=== PATIENT | female | born 1980 | race Two or more races ===

== ENCOUNTER 2022-08-09 21:26 | Inpatient (IN) | payer MEDICAID ==
[~2022-08-09] VITALS: Ht 152.4 cm; Wt 79.4 kg
--- NOTE | 2022-08-09 22:10 | NUR ---
TO ER BED 10. BIBSELF C/O RIGHT SIDE ABD PAIN X 4 DAYS, N/V AND Diarrhea. PT ALERT AND ORIENTED. RR EVEN AND NON LABORED. CONNECTED TO MONITOR. AWAITING MD ZHU
[2022-08-09] MEDS ORDERED: ONDANSETRON HCL/PF 4 MG/2 ML VIAL IVP ONE (22:30)
[2022-08-09] MEDS ORDERED: IV NS 0.9% 1,000 ML BAG IV ONE (22:30)
[2022-08-09] MEDS ORDERED: MORPHINE SULFATE INJ 2 MG/ML DISP.SYRIN IV ONE (22:30)
[2022-08-09] MEDS ORDERED: ONDANSETRON HCL/PF 4 MG/2 ML VIAL ONE (22:31)
[2022-08-09] MEDS ORDERED: MORPHINE SULFATE INJ 4 MG/ML DISP.SYRIN ONE (22:31)
[2022-08-09] MEDS ORDERED: ACETAMINOPHEN 650 MG/SUPP.RECT RC ONE (22:37)
[2022-08-09 22:53] LABS: BILIRUBIN,URINE NEGATIVE (NEGATIVE); COLOR,URINE YELLOW (YELLOW); LEUKOCYTE ESTERASE ,URINE NEGATIVE (NEGATIVE); NITRITE, URINE NEGATIVE (NEGATIVE); PH,URINE 6.5 (5.0-8.0); PROTEIN,URINE NEGATIVE (NEGATIVE); UGLUCOSE NEGATIVE (NEGATIVE); UROBILINOGEN,URINE 0.2 EU/dL (0.2)
[2022-08-09 23:01] LABS: BACTERIA,URINE Rare /HPF (None Seen); SQUAMOUS EPITHELIAL CELL,UR Few /HPF (None Seen)
[2022-08-09 23:22] LABS: BASOPHILS # (AUTO) 0.1 K/uL (0.0-0.2); BASOPHILS % (AUTO) 0.8 % (0.0-2.0); EOSINOPHILS % (AUTO) 6.7 % (0.0-6.0); HEMATOCRIT 33 % (33-45); HEMOGLOBIN 10.8 g/dL (11.5-14.8); LYMPHOCYTES # (AUTO) 3.9 K/uL (0.8-4.8); LYMPHOCYTES % (AUTO) 48.2 % (20.0-44.0); MEAN CORPUSCULAR HGB CONC 33 g/dl (31.0-36.0); MEAN CORPUSCULAR VOLUME 80 fL (82-100); MONOCYTES # (AUTO) 0.6 K/uL (0.1-1.30); MONOCYTES % (AUTO) 7.2 % (2.0-12.0); NEUTROPHILS % (AUTO) 37.1 % (43.0-81.0); PLATELET COUNT (AUTO) 317 K/uL (150-450); RED BLOOD CELL COUNT(AUTO) 4.18 MIL/uL (4.0-5.2); WHITE BLOOD COUNT (AUTO) 8.1 K/uL (4.3-11.0)
[2022-08-09] MEDS ORDERED: diphenhydrAMINE HCL 50 MG/ML VIAL ONE (23:34)
--- NOTE | 2022-08-09 23:40 | NUR ---
IV LINE ESTABLISHED [id number]
[2022-08-09 23:46] LABS: CALCIUM, SERUM 9.5 mg/dL (8.5-10.1); CREATININE 1.1 mg/dL (0.6-1.3); POTASSIUM 4.1 mmol/L (3.5-5.1)
[2022-08-09 23:57] LABS: ALBUMIN 3.8 g/dL (3.4-5.0); BILIRUBIN,DIRECT 0.1 mg/dL (0.0-0.2); BILIRUBIN,TOTAL 0.2 mg/dL (0.2-1.0); TOTAL PROTEIN, SERUM 7.8 g/dL (6.4-8.2)
--- NOTE | 2022-08-10 00:10 | NUR ---
PT SIGNED WEIVER
--- NOTE | 2022-08-10 00:19 | NUR ---
PT TAKEN TO CT SCAN VIA JONNY
[2022-08-10] MEDS ORDERED: CT SWABBABLE VALVE TRANS SET 1 EA INFUS.SET MC ONE (00:20)
[2022-08-10] MEDS ORDERED: IOHEXOL-300 100 ML VIAL IV ONE (00:20)
[2022-08-10] MEDS ORDERED: IV NS 0.9% 250 ML IV ONE (00:20)
--- NOTE | 2022-08-10 00:55 | NUR ---
covid swab done and sent to lab
[2022-08-10] MEDS ORDERED: MORPHINE SULFATE INJ 2 MG/ML DISP.SYRIN IV PRN (01:00)
[2022-08-10] MEDS ORDERED: Z GUARD REMEDY 4 OZ OINT TP PRN (01:00)
[2022-08-10] MEDS ORDERED: diphenhydrAMINE HCL 50 MG/ML VIAL ONE (01:26)
[2022-08-10] MEDS ORDERED: diphenhydrAMINE HCL 50 MG/ML VIAL IV ONE ×2 (01:30)
[2022-08-10] MEDS ORDERED: ONDANSETRON HCL/PF 4 MG/2 ML VIAL IV ONE (01:30)
[2022-08-10] MEDS ORDERED: MORPHINE SULFATE INJ 2 MG/ML DISP.SYRIN IV ONE (02:30)
[2022-08-10] MEDS ORDERED: IV NS 0.9% 1,000 ML BAG IV ONE (02:30)
[2022-08-10] MEDS ORDERED: PIPERACILLIN /TAZOBACTAM 3.375 G VIAL IV ONE ×2 (02:37→05:59)
--- NOTE | 2022-08-10 02:56 | NUR ---
r hand iv started. l wrist iv noted infiltrated by nurse.
--- NOTE | 2022-08-10 03:10 | NUR ---
BED 314
--- NOTE | 2022-08-10 04:11 | NUR ---
REPORT GIVEN TO PADILLA HINES FOR KIRK
[2022-08-10] MEDS: ONDANSETRON HCL/PF 4 MG/2 ML VIAL IVP PRN ×3 (05:19→18:26)
[2022-08-10] MEDS: IV NS 0.9% 1,000 ML IV PRN ×2 (05:22→18:32)
[2022-08-10] MEDS: diphenhydrAMINE HCL 50 MG/ML VIAL IV PRN ×3 (05:26→18:23)
[2022-08-10 05:32] VITALS: BP 111/67
[2022-08-10] MEDS ORDERED: ESCI20TA PO (05:37)
[2022-08-10] MEDS ORDERED: ALPR2TAB2 PO (05:37)
[2022-08-10] MEDS ORDERED: QUET200T PO (05:37)
[2022-08-10] MEDS ORDERED: PRAZ5CAP2 PO (05:37)
[2022-08-10 05:42] VITALS: BP 111/67
--- NOTE | 2022-08-10 05:54 | NUR ---
RN NOTES PT ARRIVED TO UNIT AMBULATORY ABLE TO MAKE NEEDS KNOWN . A/O X4 PT REPORTING 8/10 PAIN ON THE RIGHT ABDOMEN AND NAUSEA PRN MORPHINE AND ZOFRAN GIVEN TOLERATED WELL. R HAND 20G RUNNING NS @100L/HR. ALL NEEDS MET. CALL LIGHT WITHIN REACH.TABLE WITHIN REACH. PT TO REMAIN NPO AT THIS TIME.
[2022-08-10] MEDS: PIPERACILLIN /TAZOBACTAM 3.375 G in IV D5W 50 ML IV SCH ×4 (06:05→23:08)
[2022-08-10] MEDS: LORAZEPAM INJ 2 MG/ML VIAL IV PRN ×2 (07:48→23:04)
[2022-08-10 08:00] VITALS: BP 123/78
[2022-08-10] MEDS: PANTOPRAZOLE 40 MG VIAL IV SCH (09:36)
[2022-08-10] MEDS: HYDROMORPHONE 1 MG/1 ML DISP.SYRIN IV PRN ×4 (09:38→22:07)
[2022-08-10] MEDS ORDERED: GABAPENTIN 300 MG CAPSULE PO PRN (12:30)
[2022-08-10 16:00] VITALS: BP 133/89
--- NOTE | 2022-08-10 19:31 | NUR ---
RECEIVED PATIENT IN BED, ALERT/ORIENTED X4, ANXIOUS, ROOM AIR, COMPLAINING OF ABDOMINAL PAIN, REPORTED VOMITING EPISODE, EATING CRACKERS AFTER, REMINDED PATIENT ABOUT BEING NPO DUE TO ACUTE PANCREATITIS, VERBALIZED UNDERSTANDING. IVF INFUSING, NS AT 100 ML/HR, CONTINENT OF BOWEL AND BLADDER. DISCUSSED WITH PATIENT PAIN MEDICATION SCHEDULE. KEPT SAFE WILL CONTINUE TO MONITOR.
[2022-08-10 19:50] VITALS: BP 110/75
[2022-08-10 20:00] VITALS: BP 110/75
[2022-08-10] MEDS ORDERED: QUETIAPINE FUMARATE 100 MG TABLET PO SCH (22:00)
[2022-08-10] MEDS ORDERED: PRAZOSIN HCL 1 MG CAPSULE PO SCH (22:00)
[2022-08-11] MEDS: diphenhydrAMINE HCL 50 MG/ML VIAL IV PRN ×4 (00:25→19:13)
[2022-08-11] MEDS: PIPERACILLIN /TAZOBACTAM 3.375 G in IV D5W 50 ML IV SCH ×3 (05:31→17:31)
--- NOTE | 2022-08-11 05:43 | NUR ---
PATIENT REMOVED IV LINE TO RIGHT IJ, ZOSYN WAS INFUSING. IV FLUID STOPPED. NO BLEEDING NOTED. PATIENT HAS THE HABIT OF REMOVING IV LINES WHEN PATIENT FEELS IT IS INFILTRATED WITHOUT NOTIFYING NURSE.
--- NOTE | 2022-08-11 06:03 | NUR ---
ACUTE PANCREATITIS, ALERT/ORIENTED X3, NPO, ABDOMINAL PAIN, WITH N/V, NON-COMPLIANT, FOUND PATIENT EATING CRACKERS AND REPORTED VOMITING, DILAUDID 0.5 MG IV Q4HRS. BENADRYL FOR ITCHING AND ATIVAN FOR ANXIETY. PATIENT REMOVED 2 IV LINES WHEN PATIENT FEELS THEY ARE INFILTRATED. FOR MIDLINE PLACEMENT TODAY. IVF ON HOLD.
--- NOTE | 2022-08-11 07:20 | NUR ---
RN OPENING NOTES RECEIVED PATIENT RESTING IN BED, EASILY AROUSED. A/O X4, VERBALLY RESPONSIVE, NO SIGNS OF ACUTE DISTRESS NOTED. ON ROOM AIR, NO SOB NOTED. BREATHING EVEN AND UNLABORED. NOTED WITH IV ACCESS ON RIGHT HAND #22G. NO C/O PAIN AT THIS TIME. SAFETY MEASURE IN PLACE. BED IN LOWEST AND LOCKED POSITION, SIDE RAILS UP X2, CALL LIGHT PLACED WITHIN EASY REACH. WILL CONTINUE TO MONITOR PATIENT.
[2022-08-11 08:00] VITALS: BP 117/79
[2022-08-11] MEDS ORDERED: ESCITALOPRAM OXALATE (10 MG) 10 MG TABLET PO SCH (09:00)
[2022-08-11] MEDS: PANTOPRAZOLE 40 MG VIAL IV SCH (09:15)
[2022-08-11] MEDS: HYDROMORPHONE 1 MG/1 ML DISP.SYRIN IV PRN ×3 (09:22→17:24)
--- NOTE | 2022-08-11 09:22 | NUR ---
RN NOTE PATIENT C/O 8/10 ABDOMINAL PAIN. DILAUDUD O.5MG GIVEN IVP. WILL CONTINUE TO MONITOR PATIENT.
[2022-08-11 09:40] LABS: BASOPHILS # (AUTO) 0.1 K/uL (0.0-0.2); BASOPHILS % (AUTO) 1.2 % (0.0-2.0); EOSINOPHILS % (AUTO) 7.4 % (0.0-6.0); HEMATOCRIT 32 % (33-45); HEMOGLOBIN 10.2 g/dL (11.5-14.8); LYMPHOCYTES # (AUTO) 2.5 K/uL (0.8-4.8); LYMPHOCYTES % (AUTO) 41.8 % (20.0-44.0); MEAN CORPUSCULAR HGB CONC 32 g/dl (31.0-36.0); MEAN CORPUSCULAR VOLUME 81 fL (82-100); MONOCYTES # (AUTO) 0.4 K/uL (0.1-1.30); MONOCYTES % (AUTO) 7.3 % (2.0-12.0); NEUTROPHILS # (AUTO) 2.6 K/uL (1.8-8.9); NEUTROPHILS % (AUTO) 42.3 % (43.0-81.0); PLATELET COUNT (AUTO) 260 K/uL (150-450); RED BLOOD CELL COUNT(AUTO) 3.99 MIL/uL (4.0-5.2); WHITE BLOOD COUNT (AUTO) 6.1 K/uL (4.3-11.0)
[2022-08-11 10:18] LABS: CALCIUM, SERUM 8.7 mg/dL (8.5-10.1); CREATININE 1.1 mg/dL (0.6-1.3); MAGNESIUM 2.3 mg/dL (1.8-2.4); PHOSPHORUS 5.6 mg/dL (2.5-4.9); POTASSIUM 3.8 mmol/L (3.5-5.1)
[2022-08-11] MEDS ORDERED: LEVO500T90 PO (12:35)
[2022-08-11] MEDS ORDERED: METR500T PO (12:35)
[2022-08-11] MEDS ORDERED: HYOS0.1275 SL (12:35)
[2022-08-11] MEDS: ONDANSETRON HCL/PF 4 MG/2 ML VIAL IVP PRN (12:50)
[2022-08-11] MEDS: IV NS 0.9% 1,000 ML IV PRN (13:47)
[2022-08-11] MEDS ORDERED: ONDANSETRON HCL/PF 4 MG/2 ML VIAL IVP PRN (14:30)
[2022-08-11 16:00] VITALS: BP 109/69
--- NOTE | 2022-08-11 18:37 | NUR ---
RN CLOSING NOTES PATIENT IN BED AWAKE, A/O X4, VERBALLY RESPONSIVE, NO SIGNS OF ACUTE DISTRESS NOTED. REMAINS STABLE ON ROOM AIR, NO SOB NOTED. BREATHING EVEN AND UNLABORED. IV ACCESS ON RIGHT HAND #22G, INTACT AND PATENT WITH NS @100ML/HR RUNNING. MEDICATED FOR PAIN NEEDED. SAFETY MEASURE MAINTAINED. BED IN LOWEST AND LOCKED POSITION, SIDE RAILS UP X2, CALL LIGHT PLACED WITHIN EASY REACH. PATIENT WILL BE DISCHARGE TONIGHT, WILL BE PICKED-UP BY BROTHER TORREY. EXITCARE FOLDER GIVEN TO PATIENT, HEALTH TEACHINGS AND DISCHARGE INSTRUCTIONS PROVIDED WITH VERBALIZATION OF UNDERSTANDING. WILL ENDORSE TO NEXT SHIFT.
--- NOTE | 2022-08-11 19:28 | NUR ---
noc rn opening received patient in room. a/ox4. no s/s of apparent distress. no c/o pain at this time. patient for discharge, awaiting pick up driver by brother est. 2014 as endorsed, awaiting.
--- NOTE | 2022-08-11 20:44 | NUR ---
DISCHARGE NOTE patient went down @ around 2027 accompanied by Misty CARRERO. patient in stable condition, ambulating. no s/s of apparent distress. no c/o pain. no iv line and id band noted on discharge, per patient it was taken off already. paper works given to patient, signed. belongings accounted for. per patient she will be going home in a private vehicle, picked up by brother.
[2022-08-11 22:23] LABS: EOSINOPHILS % (MANUAL) 2 % (0-4); LYMPHOCYTES % (MANUAL) 40 % (16-48); MONOCYTES % (MANUAL) 3 % (0-11.0); NEUTROPHILS % (MANUAL) 55 (42-76)
== END 2022-08-11 20:30 | disposition home or self-care (01) | DRG 282 ==
LOC: ER 21:30 → MED 08-10 03:33
PROVIDERS: ADMIT Nurse Practitioner Acute Care; ATTEND Nurse Practitioner Acute Care
DX: K85.90 Acute pancreatitis without necrosis or infection, unspecified (principal); A04.9 Bacterial intestinal infection, unspecified; F32.A Depression, unspecified; N80.9 Endometriosis, unspecified; Z88.5 Allergy status to narcotic agent; Z88.8 Allergy status to other drugs, medicaments and biological substances; F41.9 Anxiety disorder, unspecified; D64.9 Anemia, unspecified; Z90.710 Acquired absence of both cervix and uterus; Z90.49 Acquired absence of other specified parts of digestive tract
CPT/HCPCS: 36415; 80048-TC; 80076-TC; 81001; 83690-TC; 83735-TC; 84100-TC; 84703-TC; 85025-TC; 87081-TC; 87086-TC; C9113; C9803; G0378; J1170; J1200; J2060; J2270; J2405; J2543; J7030; J7050; J7060; Q9967

== ENCOUNTER 2022-08-13 09:08 | Emergency (ER) | payer MEDICAID ==
[~2022-08-13] VITALS: Ht 152.4 cm; Wt 59.0 kg
[~2022-08-13 09:08] MED LIST: ALPR2TAB2 PO; ESCI20TA PO; HYOS0.1275 SL; LEVO500T90 PO; METR500T PO; PRAZ5CAP2 PO; QUET200T PO
--- NOTE | 2022-08-13 09:17 | NUR ---
BIBS C/O NAUSEA AND COMITING X4 DAYS, [facility] FOR [facility]ATIT[facility], PT STATED THAT PAIN IS 9/10 ON PAIN SCALE LOCATED ON HER UPPER ABDOMINAL REGIION THAT RADIATED TO HER BACK. ATTACHED TO MONITOR, WARM BALNKET PROVIDED FOR COMFORT. AWAITING MD ORDERS.
[2022-08-13] MEDS ORDERED: IV NS 0.9% 1,000 ML BAG IV ONE (09:30)
[2022-08-13] MEDS ORDERED: ONDANSETRON HCL/PF 4 MG/2 ML VIAL ONE (09:30)
[2022-08-13] MEDS ORDERED: ONDANSETRON HCL/PF 4 MG/2 ML VIAL IVP ONE (09:30)
[2022-08-13] MEDS ORDERED: HYDROMORPHONE INJ 2 MG/ML DISP.SYRIN IV ONE (09:30)
[2022-08-13] MEDS ORDERED: HYDROMORPHONE 1 MG/1 ML DISP.SYRIN ONE (09:30)
--- NOTE | 2022-08-13 09:32 | NUR ---
IV ESTABLISHED R HAND 20G. LABS DRAWN AND COLLECTED AT BEDSIDE.
[2022-08-13] MEDS ORDERED: diphenhydrAMINE HCL 50 MG CAPSULE PO ONE (10:00)
[2022-08-13] MEDS ORDERED: diphenhydrAMINE HCL 50 MG CAPSULE ONE (10:05)
[2022-08-13 10:08] LABS: BASOPHILS # (AUTO) 0.1 K/uL (0.0-0.2); BASOPHILS % (AUTO) 0.9 % (0.0-2.0); EOSINOPHILS % (AUTO) 5.5 % (0.0-6.0); HEMATOCRIT 33 % (33-45); HEMOGLOBIN 10.7 g/dL (11.5-14.8); LYMPHOCYTES # (AUTO) 3.7 K/uL (0.8-4.8); LYMPHOCYTES % (AUTO) 53.3 % (20.0-44.0); MEAN CORPUSCULAR HGB CONC 32 g/dl (31.0-36.0); MEAN CORPUSCULAR VOLUME 82 fL (82-100); MONOCYTES # (AUTO) 0.5 K/uL (0.1-1.30); MONOCYTES % (AUTO) 7.6 % (2.0-12.0); NEUTROPHILS # (AUTO) 2.3 K/uL (1.8-8.9); NEUTROPHILS % (AUTO) 32.7 % (43.0-81.0); PLATELET COUNT (AUTO) 281 K/uL (150-450); RED BLOOD CELL COUNT(AUTO) 4.09 MIL/uL (4.0-5.2)
[2022-08-13 10:18] LABS: CALCIUM, SERUM 8.9 mg/dL (8.5-10.1); POTASSIUM 3.7 mmol/L (3.5-5.1)
[2022-08-13 10:25] LABS: ALBUMIN 3.6 g/dL (3.4-5.0); BILIRUBIN,TOTAL 0.2 mg/dL (0.2-1.0); TOTAL PROTEIN, SERUM 7.4 g/dL (6.4-8.2)
[2022-08-13] MEDS ORDERED: diphenhydrAMINE HCL 50 MG/ML VIAL IM ONE (11:00)
[2022-08-13] MEDS ORDERED: diphenhydrAMINE HCL 50 MG/ML VIAL ONE (11:09)
[2022-08-13 11:41] VITALS: BP 122/71
--- NOTE | 2022-08-13 11:41 | NUR ---
Patient discharged to home in stable condition. Written and verbal after care instructions given. Patient verbalizes understanding of instruction.IV removed. Catheter intact and site benign. Pressure and 4x4 applied to site. No bleeding noted.
[2022-08-13 13:41] LABS: BAND % (MANUAL) 1 % (0.0-5.0); EOSINOPHILS % (MANUAL) 5 % (0-4); LYMPHOCYTES % (MANUAL) 60 % (16-48); MONOCYTES % (MANUAL) 6 % (0-11.0); NEUTROPHILS % (MANUAL) 28 (42-76)
== END 2022-08-13 11:41 | disposition home or self-care (01) ==
LOC: ER 09:15
DX: G89.29 Other chronic pain (principal); R10.9 Unspecified abdominal pain; R11.2 Nausea with vomiting, unspecified; Z90.49 Acquired absence of other specified parts of digestive tract; Z90.710 Acquired absence of both cervix and uterus; Z88.8 Allergy status to other drugs, medicaments and biological substances; Z79.899 Other long term (current) drug therapy
CPT/HCPCS: 99284; 96374; 96361; 96375; 85025; 80048; 83690; 80076; 36415; 96372; 85007; Q0163; J1200; J2405; J7030; J1170

== ENCOUNTER 2022-09-04 09:35 | Emergency (ER) | payer MEDICAID ==
[~2022-09-04] VITALS: Ht 152.4 cm; Wt 80.7 kg
--- NOTE | 2022-09-04 09:40 | NUR ---
Received pt 41 yrs female came from home c/o HEADACHE since yesterday morning awake and alert no weekness walking with stady gait
[2022-09-04] MEDS ORDERED: IV NS 0.9% 1,000 ML BAG IV ONE (10:30)
[2022-09-04] MEDS ORDERED: KETOROLAC TROMETHAMINE INJ 30 MG/ML VIAL IV ONE (10:30)
[2022-09-04] MEDS ORDERED: ONDANSETRON HCL/PF - ER 4 MG/2 ML VIAL IV ONE (10:30)
[2022-09-04] MEDS ORDERED: KETOROLAC TROMETHAMINE INJ 30 MG/ML VIAL ONE (10:42)
[2022-09-04] MEDS ORDERED: ONDANSETRON HCL/PF 4 MG/2 ML VIAL ONE (10:42)
--- NOTE | 2022-09-04 11:00 | NUR ---
INSERTED ANGO CATHTER # 20 ON RT HAND MEDICATION GIVEN ORDER PT REQUSED MORPHIN OR NUCOTIC IV GIVE DR. LAGOS AWARE
[2022-09-04] MEDS ORDERED: HYDROCODONE/APAP 10/325MG TABLET ONE (11:58)
[2022-09-04] MEDS ORDERED: HYDROCODONE/APAP 10/325MG TABLET PO ONE (12:00)
--- NOTE | 2022-09-04 12:25 | NUR ---
IV removed. Catheter intact and site benign. Pressure and 4x4 applied to site. No bleeding noted.
[2022-09-04] MEDS ORDERED: ONDA4TAB5 PO (12:26)
--- NOTE | 2022-09-04 12:32 | NUR ---
Patient discharged to home in stable condition. Written and verbal after care instructions given. Patient verbalizes understanding of instruction.
[2022-09-04 12:52] VITALS: BP 125/93
== END 2022-09-04 12:52 | disposition home or self-care (01) ==
LOC: ER 09:40
DX: R51.9 Headache, unspecified (principal); R11.2 Nausea with vomiting, unspecified; Z90.710 Acquired absence of both cervix and uterus; Z90.49 Acquired absence of other specified parts of digestive tract; Z88.8 Allergy status to other drugs, medicaments and biological substances; Z79.899 Other long term (current) drug therapy
CPT/HCPCS: 99284; 96374; 96361; 96375; J1885; J2405; J7030

== ENCOUNTER 2022-09-07 20:42 | Emergency (ER) | payer MEDICAID ==
[~2022-09-07] VITALS: Ht 152.4 cm; Wt 68.0 kg
[~2022-09-07 20:42] MED LIST changes: +ONDA4TAB5 PO
--- NOTE | 2022-09-07 22:00 | NUR ---
TO ER BED 12, BIBSELF C/O R GROIN ABD X5 DAYS + N/V/D & BLOODY STOOL. PT IS ALERT AND ORIENTED. AMBULATORY WITH STEADY GAIT. CONNECTED TO MONITOR. VSS
--- NOTE | 2022-09-07 22:05 | NUR ---
URINE COLLECTED AND SENT TO LAB
[2022-09-07] MEDS ORDERED: ONDANSETRON HCL/PF 4 MG/2 ML VIAL IVP ONE (22:30)
[2022-09-07] MEDS ORDERED: IV NS 0.9% 1,000 ML BAG IV ONE (22:30)
[2022-09-07] MEDS ORDERED: KETOROLAC TROMETHAMINE INJ 30 MG/ML VIAL IV ONE (22:30)
[2022-09-07] MEDS ORDERED: KETOROLAC TROMETHAMINE 15 MG/ML VIAL ONE (22:33)
[2022-09-07] MEDS ORDERED: ONDANSETRON HCL/PF 4 MG/2 ML VIAL ONE (22:33)
[2022-09-07 22:48] LABS: BILIRUBIN,URINE NEGATIVE (NEGATIVE); COLOR,URINE YELLOW (YELLOW); LEUKOCYTE ESTERASE ,URINE 1+ (NEGATIVE); NITRITE, URINE NEGATIVE (NEGATIVE); PROTEIN,URINE NEGATIVE (NEGATIVE); UGLUCOSE NEGATIVE (NEGATIVE); UROBILINOGEN,URINE 0.2 EU/dL (0.2)
[2022-09-07 23:07] LABS: RBC,URINE 21-50 /HPF (0-2)
[2022-09-07 23:09] LABS: BACTERIA,URINE Rare /HPF (None Seen)
[2022-09-07 23:18] LABS: BASOPHILS % (AUTO) 0.5 % (0.0-2.0); EOSINOPHILS % (AUTO) 5.1 % (0.0-6.0); HEMATOCRIT 33 % (33-45); HEMOGLOBIN 10.4 g/dL (11.5-14.8); LYMPHOCYTES # (AUTO) 3.3 K/uL (0.8-4.8); LYMPHOCYTES % (AUTO) 45.5 % (20.0-44.0); MEAN CORPUSCULAR HGB CONC 32 g/dl (31.0-36.0); MEAN CORPUSCULAR VOLUME 80 fL (82-100); MONOCYTES # (AUTO) 0.5 K/uL (0.1-1.30); MONOCYTES % (AUTO) 6.9 % (2.0-12.0); PLATELET COUNT (AUTO) 317 K/uL (150-450); RED BLOOD CELL COUNT(AUTO) 4.05 MIL/uL (4.0-5.2); WHITE BLOOD COUNT (AUTO) 7.2 K/uL (4.3-11.0)
[2022-09-07 23:34] LABS: ALBUMIN 3.6 g/dL (3.4-5.0); BILIRUBIN,TOTAL 0.2 mg/dL (0.2-1.0); CALCIUM, SERUM 9.5 mg/dL (8.5-10.1); CREATININE 0.8 mg/dL (0.6-1.3); POTASSIUM 3.7 mmol/L (3.5-5.1); TOTAL PROTEIN, SERUM 7.5 g/dL (6.4-8.2)
[2022-09-07] MEDS ORDERED: CT SWABBABLE VALVE TRANS SET 1 EA INFUS.SET MC ONE (23:52)
[2022-09-07] MEDS ORDERED: IV NS 0.9% 250 ML IV ONE (23:52)
[2022-09-07] MEDS ORDERED: IOHEXOL-300 100 ML VIAL IV ONE (23:52)
[2022-09-08] MEDS ORDERED: KETOROLAC TROMETHAMINE INJ 30 MG/ML VIAL ONE (02:16)
--- NOTE | 2022-09-08 02:27 | NUR ---
IV removed. Catheter intact and site benign. Pressure and 4x4 applied to site. No bleeding noted.
--- NOTE | 2022-09-08 02:28 | NUR ---
Patient discharged to home in stable condition. Written and verbal after care instructions given. Patient verbalizes understanding of instruction.
[2022-09-08 02:29] VITALS: BP 136/81
[2022-09-08] MEDS ORDERED: KETOROLAC TROMETHAMINE INJ 30 MG/ML VIAL IV ONE (02:30)
== END 2022-09-08 02:29 | disposition home or self-care (01) ==
LOC: ER 20:44
DX: G89.29 Other chronic pain (principal); R10.31 Right lower quadrant pain; Z90.49 Acquired absence of other specified parts of digestive tract; Z90.710 Acquired absence of both cervix and uterus; Z88.8 Allergy status to other drugs, medicaments and biological substances; Z79.899 Other long term (current) drug therapy
CPT/HCPCS: 99285; 74177; 96374; 96375; 85025; 80048; 83690; 80076; 84703; 81001; 36415; 84702; 96376; J2405; J7030; J7050; Q9967; J1885 ×2

== ENCOUNTER 2022-09-13 16:13 | Emergency (ER) | payer MEDICAID ==
[~2022-09-13] VITALS: Ht 152.4 cm; Wt 68.0 kg
--- NOTE | 2022-09-13 16:20 | NUR ---
CAME IN FOR GENERALIZED ITCH AND CAN'T SWALLOW 1 1/2 HRS AGO "ATE RICE W CHICKEN [place] W MSG W/C I'M ALLERGIC TO". PLACED ON BED, AAOX4, BREATHING EVEN AND UNLABORED SATURATING AT 98%RA.
[2022-09-13] MEDS ORDERED: DIPH50CA4 PO (17:00)
[2022-09-13] MEDS ORDERED: PRED50TA PO (17:00)
[2022-09-13] MEDS ORDERED: FAMO-131 PO (17:00)
[2022-09-13] MEDS ORDERED: FAMOTIDINE (20 MG) 20 MG TABLET ONE (17:14)
[2022-09-13] MEDS ORDERED: predniSONE 20 MG TABLET ONE (17:14)
[2022-09-13] MEDS: FAMOTIDINE (20 MG) 20 MG TABLET PO ONE (17:19)
[2022-09-13] MEDS: predniSONE 50 MG TABLET PO ONE (17:19)
--- NOTE | 2022-09-13 17:22 | NUR ---
Patient discharged to home in stable condition. Written and verbal after care instructions given. Patient verbalizes understanding of instruction.
[2022-09-13 17:47] VITALS: BP 120/65
== END 2022-09-13 17:22 | disposition home or self-care (01) ==
LOC: ER 16:21
DX: T78.1XXA Other adverse food reactions, not elsewhere classified, initial encounter (principal); Z90.49 Acquired absence of other specified parts of digestive tract; Z90.710 Acquired absence of both cervix and uterus; Z88.8 Allergy status to other drugs, medicaments and biological substances; Z79.899 Other long term (current) drug therapy; X58.XXXA Exposure to other specified factors, initial encounter

== ENCOUNTER 2022-09-23 13:26 | Emergency (ER) | payer MEDICAID ==
[~2022-09-23] VITALS: Ht 152.4 cm; Wt 68.0 kg
[~2022-09-23 13:26] MED LIST changes: +DIPH50CA4 PO; +FAMO-131 PO; +PRED50TA PO
[2022-09-23] MEDS ORDERED: ONDANSETRON HCL/PF 4 MG/2 ML VIAL IV ONE (14:30)
[2022-09-23] MEDS ORDERED: IV NS 0.9% 1,000 ML IV ONE (14:30)
[2022-09-23] MEDS ORDERED: diphenhydrAMINE HCL 50 MG/ML VIAL IV ONE ×4 (14:30→22:00)
[2022-09-23] MEDS ORDERED: KETOROLAC TROMETHAMINE INJ 30 MG/ML VIAL IV ONE ×2 (14:30→16:00)
[2022-09-23] MEDS ORDERED: diphenhydrAMINE HCL 50 MG/ML VIAL ONE ×4 (14:42→21:56)
[2022-09-23] MEDS ORDERED: ONDANSETRON HCL/PF 4 MG/2 ML VIAL ONE (14:42)
[2022-09-23] MEDS ORDERED: KETOROLAC TROMETHAMINE 15 MG/ML VIAL ONE ×2 (14:42→15:58)
--- NOTE | 2022-09-23 15:24 | NUR ---
Sleeping, easily awakened. Respirations even/unlabored NO distress
[2022-09-23] MEDS ORDERED: SUMATRIPTAN SUCCINATE 6 MG/0.5 ML VIAL SQ ONE ×2 (15:58→16:00)
[2022-09-23 16:00] VITALS: BP 120/60
--- NOTE | 2022-09-23 16:00 | NUR ---
Awake states RAMIREZ still there aware w/additional orders
[2022-09-23] MEDS ORDERED: HYDROMORPHONE 1 MG/1 ML DISP.SYRIN ONE (16:59)
[2022-09-23] MEDS ORDERED: HYDROMORPHONE 1 MG/1 ML DISP.SYRIN IV ONE (17:00)
--- NOTE | 2022-09-23 18:00 | NUR ---
Ambulatory- BRP NO acute changes
[2022-09-23] MEDS ORDERED: DEXAMETHASONE SOD PHOSPHATE 10 MG/ML VIAL ONE (18:28)
[2022-09-23] MEDS ORDERED: Magnesium 1GM/D5W 100ML PREMIX 100 ML IV ONE (18:29)
[2022-09-23] MEDS ORDERED: DEXAMETHASONE SOD PHOSPHATE 10 MG/ML VIAL IV ONE (18:30)
[2022-09-23] MEDS: Magnesium 1GM/D5W 100ML PREMIX 100 ML IV SCH ×2 (18:44→20:02)
[2022-09-23] MEDS ORDERED: LIDOCAINE 4% PF AMPUL 40 MG/ML AMPUL ONE (20:30)
[2022-09-23] MEDS ORDERED: LIDOCAINE 4% PF AMPUL 40 MG/ML AMPUL TP ONE (21:00)
[2022-09-23] MEDS ORDERED: CARB15DR12 EACH EAR (21:07)
--- NOTE | 2022-09-23 22:07 | NUR ---
IV removed. Catheter intact and site benign. Pressure and 4x4 applied to site. No bleeding noted.Patient discharged to home in stable condition. Written and verbal after care instructions given. Patient verbalizes understanding of instruction.
== END 2022-09-23 22:19 | disposition home or self-care (01) ==
LOC: ER 13:32
DX: R51.9 Headache, unspecified (principal); H61.23 Impacted cerumen, bilateral; Z90.49 Acquired absence of other specified parts of digestive tract; Z90.710 Acquired absence of both cervix and uterus; Z88.8 Allergy status to other drugs, medicaments and biological substances; Z79.899 Other long term (current) drug therapy
CPT/HCPCS: 99284; 96365; 96375; 70450; 96366; 69210; 96376; 96372; J1100; J1200 ×4; J3030; J3490; J2405; J7030; J3475; J1170; J1885 ×2

== ENCOUNTER 2022-09-27 16:58 | Emergency (ER) | payer MEDICAID ==
[~2022-09-27] VITALS: Ht 152.4 cm; Wt 68.0 kg
[~2022-09-27 16:58] MED LIST changes: +CARB15DR12 EACH EAR
[2022-09-27 17:08] VITALS: BP 126/82
[2022-09-27] MEDS ORDERED: LIDOCAINE 4% PF AMPUL 40 MG/ML AMPUL TP ONE (19:00)
[2022-09-27] MEDS ORDERED: SUMATRIPTAN SUCCINATE 6 MG/0.5 ML VIAL SQ ONE ×2 (19:00→19:10)
[2022-09-27] MEDS ORDERED: KETOROLAC TROMETHAMINE INJ 60 MG/2 ML VIAL IM ONE (19:00)
[2022-09-27] MEDS ORDERED: KETOROLAC TROMETHAMINE INJ 30 MG/ML VIAL ONE (19:10)
[2022-09-27] MEDS ORDERED: LIDOCAINE 4% PF AMPUL 40 MG/ML AMPUL ONE (19:10)
[2022-09-27] MEDS ORDERED: DEXAMETHASONE 4 MG TABLET ONE (19:52)
[2022-09-27] MEDS ORDERED: diphenhydrAMINE HCL 25 MG CAPSULE ONE (19:52)
[2022-09-27] MEDS ORDERED: DEXAMETHASONE 1 MG TABLET PO ONE (20:00)
[2022-09-27] MEDS ORDERED: DIPHENHYDRAMINE HCL 12.5 MG/5 ML UDC PO ONE (20:00)
--- NOTE | 2022-09-27 20:05 | NUR ---
Patient discharged to home in stable condition. Written and verbal after care instructions given. Patient verbalizes understanding of instruction.
== END 2022-09-27 20:06 | disposition home or self-care (01) ==
LOC: ER 17:04
DX: R51.9 Headache, unspecified (principal); Z90.49 Acquired absence of other specified parts of digestive tract; Z90.710 Acquired absence of both cervix and uterus; Z88.8 Allergy status to other drugs, medicaments and biological substances; Z79.899 Other long term (current) drug therapy
CPT/HCPCS: 99284; 96372 ×2; J8540; Q0163 ×2; J3030; J3490; J1885